=== PATIENT | female | born 1995 ===

== ENCOUNTER 2023-09-26 15:17 | Inpatient (IN) ==
[2023-09-26] MEDS ORDERED: Al Hydrox/Mg Hydrox/Simet LIQ 30 ML UDC PO PRN (19:38)
[2023-09-27] MEDS: Vitamin THERAPEUTIC TAB PO SCH (09:08)
[2023-09-27 10:01] LABS: HDL Cholesterol 70.6 mg/dL
[2023-09-27] MEDS: Amoxicillin/Clavul 875/125 TAB (Augmentin 875 tab) PO SCH ×2 (18:29→18:59)
[2023-09-28] MEDS: Amoxicillin/Clavul 875/125 TAB (Augmentin 875 tab) PO SCH (08:17)
[2023-09-28] MEDS: Vitamin THERAPEUTIC TAB PO SCH (08:17)
== END 2023-09-28 13:01 | disposition home or self-care (01) | DRG 882 ==
LOC: BSU → PREINTOOBSV 19:04 → OBSVTOIN 19:04
PROVIDERS: ADMIT Psychiatry & Neurology Psychiatry; ATTEND Psychiatry & Neurology Psychiatry